=== PATIENT | male | born 1935 | race Caucasian/White ===

== ENCOUNTER → 2016-06-29 | Outpatient (REF) ==
[~2016-06-29] MED LIST: CORDARONE200 MG/TAB PO; FLOMAX 0.40.4 MG/CAP PO; LIPITOR 40MG TA40 MG PO; PRILOSEC 20MG20 MG PO; SYNTHROID0.075 MG/T PO; TIROSINT75 MC1 PO; TOPROL XL 25MG25 MG PO; ZETIA 10MG TAB10 MG PO
[2016-06-29 13:12] LABS: THYROID STIMULATING HORMONE 10.5 uIU/mL (0.465-4.680)
== END ==
LOC: ZLAB.WCH 11:11
PROVIDERS: Internal Medicine Cardiovascular Disease
DX: Z01.89 Encounter for other specified special examinations (principal)

== ENCOUNTER → 2021-05-07 | Outpatient (CLI) | payer MEDICARE, BC | LOC: ZLAB.ENT 15:47 | DX: J32.9 Chronic sinusitis, unspecified (principal) ==